=== PATIENT | female | born 1960 | race Caucasian/White ===

== ENCOUNTER 2022-11-15 09:55 | Outpatient (CLI) | payer MEDICARE, SELFPAY ==
--- NOTE | ~2022-11-15 | MR_ITS ---
MRI of the left knee Clinical history: Pain Technique: Coronal proton density and proton density-weighted images, sagittal proton-density and T2 fat-sat images, and axial proton-density fat-saturated images were acquired. Findings: Patient is status post ACL graft reconstruction. ACL graft is intact, with normal orientati on and signal fibers. Posterior cruciate ligament is intact. Medial collateral ligament shows no evid ence of acute injury. Probable Cholo-Stieda lesion, consistent with remote proximal MCL injury. Lateral collateral ligament complex is intact. Popliteus tendon is intact. Lateral meniscus is intact, without evidence of tear. There is complex tearing extensively involving the posterior horn and body of the medial meniscus. There is patchy mild tricompartmental chondromalacia. Small tricompartmental osteophytes are present. Extensor mechanism is intact. Minimal joint effusion present. No Metzger's cyst. Impression: Extensive complex tearing of the posterior horn and body of the medial meniscus. Status post ACL graft reconstruction. ACL graft is intact. Mild tricompartmental osteoarthritis. Reviewed, dictated and finalized at [facility]. [facility] [place] Impression: Extensive complex tearing of the posterior horn and body of the medial meniscus . Status post ACL graft reconstruction. ACL graft is intact. Mild tricompartmental osteoarthritis.
== END 2022-11-15 09:56 | disposition home or self-care (01) ==
DX: S83.232A Complex tear of medial meniscus, current injury, left knee, initial encounter (principal); S83.249A Other tear of medial meniscus, current injury, unspecified knee, initial encounter; X58.XXXA Exposure to other specified factors, initial encounter
CPT/HCPCS: 73721